=== PATIENT | male | born 1945 | race Caucasian/White ===

== ENCOUNTER → 2019-06-02 | Outpatient (CLI) | payer OTHER, BC | END | disposition home or self-care (01) | LOC: US 09:49 | PROC: BH4CZZZ Ultrasonography of Head and Neck (ICD-10-PCS; principal; 2019-06-02) | DX: R22.1 Localized swelling, mass and lump, neck (principal) ==

== ENCOUNTER 2019-11-28 13:37 | Emergency (ER) | payer OTHER, BC ==
[~2019-11-28] VITALS: Ht 172.7 cm; Wt 94.3 kg
[2019-11-28 13:42] VITALS: Ht 172.7 cm; Wt 94.3 kg
[2019-11-28 14:20] LABS: BASOPHIL % 0.5 % (0-2); PLATELET COUNT 204 x10^3mcL (130-400)
[2019-11-28 14:38] LABS: CALCIUM 8.8 mg/dL (8.5-10.1); CARBON DIOXIDE 28.1 mmol/L (21-32); CHLORIDE SERUM 104 mmol/L (98-107); CREATININE SERUM 1.1 mg/dL (0.7-1.3); GLUCOSE SERUM 154 mg/dL (74-106); POTASSIUM SERUM 3.9 mmol/L (3.5-5.1); SODIUM SERUM 140 mmol/L (136-145)
[2019-11-28 14:42] LABS: ALBUMIN 3.4 g/dL (3.4-5.0); ALKALINE PHOSPHATASE 100 U/L (46-116); ALT/SGPT 37 U/L (16-63); AST/SGOT 25 U/L (15-37); BILIRUBIN TOTAL 1.1 mg/dL (0.20-1.00); TOTAL PROTEIN, SERUM 7.5 g/dL (6.4-8.2)
[2019-11-28 15:33] VITALS: BP 118/69
== END 2019-11-28 15:33 | disposition home or self-care (01) ==
LOC: ED 13:37
PROVIDERS: Emergency Medicine
DX: R29.810 Facial weakness (principal); C80.1 Malignant (primary) neoplasm, unspecified; I25.10 Atherosclerotic heart disease of native coronary artery without angina pectoris; I10 Essential (primary) hypertension
CPT/HCPCS: 36415